=== PATIENT | female | born 1990 | race Caucasian/White ===

== ENCOUNTER 2016-10-03 11:36 | Emergency (ER) | payer OTHER ==
[~2016-10-03] VITALS: Wt 90.7 kg
[~2016-10-03 11:36] MED LIST: ALBUTEROL0.09 MG/A2 INH; AMOXICILLIN500 M2 PO; AMOXICILLIN500 MG PO; ANAPROX DS550 MG PO; ANUSOL HC-11% TP; ATARAX25 MG PO; ATIVAN1 MG PO; BACTRIM DS 8001 TA1 PO; BENTYL10 MG PO; BIRTH CONTROL1 EAC1 PO; CELEXA20 MG PO; CEPHALEXIN500 M1 PO; CIPRO500 MG PO; CLARITIN10 MG PO; CLINDAMYCIN HC300 MG PO; COLACE100 MG; COLACE100 MG PO; COMPAZINE SR10 MG PO; COMPAZINE10 MG PO; CYCLOBENZAPRINE10 MG PO; DEPAKOTE500 MG PO; FLEXERIL5 MG PO; FLONASE ALLERG9.9 ML NS; Feosol300 MG PO; HYDROCODONE BIT1 T11 PO; IBU-8800 MG PO; IBU800 MG PO; IRON325 M1 PO; KEFLEX500 MG PO; LABETALOL100 MG PO; LIDEX0.05% T; MACROBID100 M1 PO; MEDROL DOSEPAK4 MG PO; MOTRIN800 MG PO; NKHM; NORCO 5-325 TA1 EACH PO; PERCOCET 325 MG1 TA6 PO; PREDNICOT20 MG PO; PREDNISONE10 MG PO; PRENATAL1 TA2 PO; PRENATAL1 TA7 PO; PROAIR HFA0.09 MG/AC IH; PROVERA10 MG PO; ROBITUSSIN DM 105 ML PO; SOLU-MEDROL40 MG IJ; TOBREX 5 ML5 ML OPH; TRAMADOL HCL50 MG PO; TYLENOL325 M1 PO; ULTRAM50 MG PO; ZANTAC150 MG PO; ZITHROMAX Z PA250 MG PO; ZITHROMAX500 MG PO; ZOFRAN ODT4 MG SL; ZOFRAN4 MG PO; ZYRTEC10 MG PO
[2016-10-03] MEDS ORDERED: VIBRAMYCIN100 MG PO (12:57)
== END 2016-10-03 13:58 | disposition home or self-care (01) ==
LOC: ED 11:36
DX: J20.9 Acute bronchitis, unspecified (principal); F17.200 Nicotine dependence, unspecified, uncomplicated; Z98.890 Other specified postprocedural states

== ENCOUNTER 2016-10-11 19:28 | Emergency (ER) | payer OTHER ==
[~2016-10-11] VITALS: Ht 162.5 cm; Wt 90.7 kg
[~2016-10-11 19:28] MED LIST changes: +VIBRAMYCIN100 MG PO
[2016-10-11 19:46] LABS: BILIRUBIN NEGATIVE (NEGATIVE); BLOOD TRACE-INTACT (NEGATIVE); CLARITY CLEAR (CLEAR); COLOR YELLOW (YELLOW); GLUCOSE NEGATIVE (NEGATIVE); KETONE TRACE (NEGATIVE); LEUKO ESTERASE NEGATIVE (NEGATIVE); NITRITE NEGATIVE (NEGATIVE); PH 6.5 (5.0-9.0); PROTEIN NEGATIVE (NEGATIVE)
[2016-10-11 19:58] LABS: BACTERIA TRACE; EPITHELIAL CELLS 60-70; URINE REFLEX COMMENT NO (NO)
[2016-10-11 20:13] LABS: BASO % 0.3 % (0.0-1.0); EOS # 0.5 10*3/uL (0.0-0.4); HEMATOCRIT 36.3 % (37.0-47.0); LYMPH # 3.7 10*3/uL (1.3-4.4); MEAN CELL VOLUME 87.1 fl (81.0-99.0); MEAN CORPUSCULAR HGB 28.8 pg (27.0-31.0); MEAN CORPUSCULAR HGB CONC 33.1 g/dl (33.0-37.0); MEAN PLATELET VOLUME 8.9 fl (9.6-12.3); MONO # 0.7 10*3/uL (0.1-1.0); MONO % 8.1 % (3.0-9.0); NEUT # 4.1 10*3/uL (2.3-7.9); NEUT % 45.2 % (47.0-73.0); PLATELET COUNT AUTOMATED 335 10*3/uL (130-400); RED BLOOD COUNT 4.17 10*6/uL (4.10-5.10)
[2016-10-11 20:30] LABS: ALBUMIN 3.5 gm/dl (3.1-4.5); ALKALINE PHOSPHATASE 69 U/L (45-117); BILIRUBIN, TOTAL 0.2 mg/dl (0.2-1.0); BUN 12 mg/dl (7-24); CARBON DIOXIDE 23 mmol/L (21-32); CHLORIDE 109 mmol/L (98-107); EST GLOM FILT AFRICAN AMERICAN > 60 ml/min; GLUCOSE 95 mg/dL (65-99); POTASSIUM 3.8 mmol/L (3.5-5.1); SGOT/AST 12 IU/L (3-35); SGPT/ALT 24 U/L (12-78); SODIUM 142 mmol/L (136-145); TOTAL PROTEIN 7.2 gm/dL (6.4-8.2)
[2016-10-11 20:33] LABS: C-REACTIVE PROTEIN < 0.29 MG/DL (0-0.3); TROPONIN I < 0.015 ng/ml (<0.5)
[2016-10-11] MEDS ORDERED: ULTRAM50 MG PO (21:24)
[2016-10-11] MEDS ORDERED: ANAPROX DS550 MG PO (21:24)
== END 2016-10-11 21:56 | disposition home or self-care (01) ==
LOC: ED 19:28
PROVIDERS: Emergency Medicine Emergency Medical Services
DX: M94.0 Chondrocostal junction syndrome [Tietze] (principal); F17.200 Nicotine dependence, unspecified, uncomplicated

== ENCOUNTER → 2016-11-25 | Outpatient (CLI) | payer OTHER ==
[~2016-11-25] MED LIST changes: +AUGMENTIN 875875 MG PO; +CLARITIN-D 12 H1 TAB PO; +FLONASE ALLERG9.9 ML NAS; +LEXAPRO10 MG PO
== END | disposition home or self-care (01) ==
LOC: RESCLI
DX: F31.9 Bipolar disorder, unspecified (principal); J30.89 Other allergic rhinitis; J02.9 Acute pharyngitis, unspecified; E66.9 Obesity, unspecified; K21.9 Gastro-esophageal reflux disease without esophagitis; Z72.0 Tobacco use

== ENCOUNTER 2017-01-03 21:20 | Emergency (ER) | payer OTHER ==
[~2017-01-03] VITALS: Ht 162.5 cm; Wt 86.2 kg
[~2017-01-03 21:20] MED LIST changes: -AUGMENTIN 875875 MG PO; -CLARITIN-D 12 H1 TAB PO; -FLONASE ALLERG9.9 ML NAS; -LEXAPRO10 MG PO
[2017-01-03] MEDS ORDERED: LEXAPRO10 MG PO (21:33)
[2017-01-03] MEDS ORDERED: CLARITIN10 MG PO (21:33)
[2017-01-03] MEDS ORDERED: AUGMENTIN 875875 MG PO (22:01)
[2017-01-03] MEDS ORDERED: FLONASE ALLERG9.9 ML NAS (22:01)
[2017-01-03] MEDS ORDERED: CLARITIN-D 12 H1 TAB PO (22:01)
== END 2017-01-03 22:07 | disposition home or self-care (01) ==
LOC: ED 21:20
DX: J01.11 Acute recurrent frontal sinusitis (principal); F17.200 Nicotine dependence, unspecified, uncomplicated

== ENCOUNTER → 2017-01-12 | Outpatient (CLI) | payer OTHER ==
[~2017-01-12] MED LIST changes: +AUGMENTIN 875875 MG PO; +CLARITIN-D 12 H1 TAB PO; +FLONASE ALLERG9.9 ML NAS; +LEXAPRO10 MG PO
== END | disposition home or self-care (01) ==
LOC: RESCLI 00:41
DX: J32.9 Chronic sinusitis, unspecified (principal); K21.9 Gastro-esophageal reflux disease without esophagitis; J45.909 Unspecified asthma, uncomplicated

== ENCOUNTER → 2017-01-20 | Outpatient (CLI) | payer OTHER | END | disposition home or self-care (01) | LOC: RESCLI 03:46 | DX: F31.9 Bipolar disorder, unspecified (principal); J01.81 Other acute recurrent sinusitis; F20.89 Other schizophrenia; E66.9 Obesity, unspecified; Z72.0 Tobacco use; J45.909 Unspecified asthma, uncomplicated ==

== ENCOUNTER 2017-02-18 21:45 | Emergency (ER) | payer OTHER ==
[~2017-02-18] VITALS: Ht 162.5 cm; Wt 90.7 kg
[2017-02-18 22:33] LABS: BILIRUBIN NEGATIVE (NEGATIVE); BLOOD 1+ (NEGATIVE); CLARITY SL CLOUDY (CLEAR); COLOR YELLOW (YELLOW); GLUCOSE NEGATIVE (NEGATIVE); KETONE NEGATIVE (NEGATIVE); LEUKO ESTERASE 3+ (NEGATIVE); NITRITE NEGATIVE (NEGATIVE); PH 5.5 (5.0-9.0); PROTEIN NEGATIVE (NEGATIVE); UROBILINOGEN 0.2 E.U./dl (0.2-1.0)
[2017-02-18 22:39] LABS: BACTERIA 1+; EPITHELIAL CELLS 21-30; URINE REFLEX COMMENT YES (NO)
[2017-02-18 22:53] LABS: BASO # 0.1 10*3/uL (0.0-0.1); BASO % 0.6 % (0.0-1.0); EOS # 0.7 10*3/uL (0.0-0.4); EOS % 6.4 % (1.0-4.0); HEMATOCRIT 38.2 % (37.0-47.0); HEMOGLOBIN 12.5 g/dl (12.0-16.0); LYMPH # 3.7 10*3/uL (1.3-4.4); LYMPH % 36.5 % (27.0-41.0); MEAN CELL VOLUME 88.4 fl (81.0-99.0); MEAN CORPUSCULAR HGB 28.9 pg (27.0-31.0); MEAN CORPUSCULAR HGB CONC 32.7 g/dl (33.0-37.0); MEAN PLATELET VOLUME 8.6 fl (9.6-12.3); MONO # 0.8 10*3/uL (0.1-1.0); MONO % 7.6 % (3.0-9.0); NEUT # 4.9 10*3/uL (2.3-7.9); NEUT % 48.5 % (47.0-73.0); PLATELET COUNT AUTOMATED 292 10*3/uL (130-400); RED BLOOD COUNT 4.32 10*6/uL (4.10-5.10); RED CELL DISTRI WIDTH 13.2 % (0-14.5); WHITE BLOOD COUNT 10.1 10*3/uL (4.8-10.8)
[2017-02-18 23:11] LABS: ALBUMIN 3.5 gm/dl (3.1-4.5); ALKALINE PHOSPHATASE 79 U/L (45-117); BILIRUBIN, TOTAL 0.2 mg/dl (0.2-1.0); BUN 9 mg/dl (7-24); CARBON DIOXIDE 29 mmol/L (21-32); CHLORIDE 105 mmol/L (98-107); EST GLOM FILT AFRICAN AMERICAN > 60 ml/min; GLUCOSE 88 mg/dL (65-99); POTASSIUM 3.5 mmol/L (3.5-5.1); SGOT/AST 14 IU/L (3-35); SGPT/ALT 24 U/L (12-78); SODIUM 143 mmol/L (136-145); TOTAL PROTEIN 6.9 gm/dL (6.4-8.2)
[2017-02-18] MEDS ORDERED: CIPRO500 MG PO (23:24)
== END 2017-02-18 23:56 | disposition home or self-care (01) ==
LOC: ED 21:45
PROVIDERS: Emergency Medicine
DX: N39.0 Urinary tract infection, site not specified (principal); R31.9 Hematuria, unspecified; F17.200 Nicotine dependence, unspecified, uncomplicated; Z79.899 Other long term (current) drug therapy

== ENCOUNTER 2017-02-28 17:01 | Emergency (ER) | payer OTHER ==
[~2017-02-28] VITALS: Wt 90.7 kg
[2017-02-28] MEDS ORDERED: SERTRALINE HYDR50 MG PO (17:03)
[2017-02-28] MEDS ORDERED: GOOD NEIGHBOR L10 MG PO (17:03)
[2017-02-28] MEDS ORDERED: ESCITALOPRAM OX10 MG PO (17:03)
[2017-02-28 17:25] LABS: BILIRUBIN NEGATIVE (NEGATIVE); BLOOD NEGATIVE (NEGATIVE); CLARITY SL CLOUDY (CLEAR); COLOR YELLOW (YELLOW); GLUCOSE NEGATIVE (NEGATIVE); KETONE NEGATIVE (NEGATIVE); LEUKO ESTERASE NEGATIVE (NEGATIVE); NITRITE NEGATIVE (NEGATIVE); PROTEIN NEGATIVE (NEGATIVE); SPECIFIC GRAVITY >= 1.030 (1.005-1.030)
[2017-02-28 17:31] LABS: BASO # 0.1 10*3/uL (0.0-0.1); BASO % 0.5 % (0.0-1.0); EOS # 0.7 10*3/uL (0.0-0.4); EOS % 5.4 % (1.0-4.0); HEMATOCRIT 37.7 % (37.0-47.0); HEMOGLOBIN 12.3 g/dl (12.0-16.0); LYMPH # 3.8 10*3/uL (1.3-4.4); LYMPH % 30.8 % (27.0-41.0); MEAN CELL VOLUME 87.5 fl (81.0-99.0); MEAN CORPUSCULAR HGB 28.5 pg (27.0-31.0); MEAN CORPUSCULAR HGB CONC 32.6 g/dl (33.0-37.0); MEAN PLATELET VOLUME 8.8 fl (9.6-12.3); MONO # 1.2 10*3/uL (0.1-1.0); MONO % 9.9 % (3.0-9.0); NEUT # 6.5 10*3/uL (2.3-7.9); NEUT % 53.1 % (47.0-73.0); PLATELET COUNT AUTOMATED 342 10*3/uL (130-400); RED BLOOD COUNT 4.31 10*6/uL (4.10-5.10); RED CELL DISTRI WIDTH 13.3 % (0-14.5); WHITE BLOOD COUNT 12.3 10*3/uL (4.8-10.8)
[2017-02-28 17:35] LABS: BACTERIA TRACE; MUCOUS 1+
[2017-02-28 17:36] LABS: URINE REFLEX COMMENT NO (NO)
[2017-02-28 17:48] LABS: ALBUMIN 3.6 gm/dl (3.1-4.5); ALKALINE PHOSPHATASE 82 U/L (45-117); BILIRUBIN, TOTAL 0.3 mg/dl (0.2-1.0); BUN 8 mg/dl (7-24); CARBON DIOXIDE 25 mmol/L (21-32); CHLORIDE 106 mmol/L (98-107); EST GLOM FILT AFRICAN AMERICAN > 60 ml/min; GLUCOSE 89 mg/dL (65-99); SGOT/AST 18 IU/L (3-35); SGPT/ALT 23 U/L (12-78); SODIUM 142 mmol/L (136-145); TOTAL PROTEIN 7.3 gm/dL (6.4-8.2)
== END 2017-02-28 18:12 | disposition home or self-care (01) ==
LOC: ED 17:01
PROVIDERS: Physician Assistant
DX: R60.0 Localized edema (principal); R03.0 Elevated blood-pressure reading, without diagnosis of hypertension; F17.200 Nicotine dependence, unspecified, uncomplicated; Z79.899 Other long term (current) drug therapy

== ENCOUNTER 2017-03-04 21:32 | Emergency (ER) | payer OTHER ==
[~2017-03-04] VITALS: Ht 162.5 cm; Wt 9.1 kg
[~2017-03-04 21:32] MED LIST changes: +ESCITALOPRAM OX10 MG PO; +GOOD NEIGHBOR L10 MG PO; +SERTRALINE HYDR50 MG PO
[2017-03-04] MEDS ORDERED: TRINTELLIX20 MG PO (21:49)
[2017-03-04] MEDS ORDERED: XANAX0.5 MG PO (21:49)
[2017-03-04 23:05] LABS: BASO # 0.1 10*3/uL (0.0-0.1); BASO % 0.5 % (0.0-1.0); EOS # 0.7 10*3/uL (0.0-0.4); EOS % 6.7 % (1.0-4.0); HEMATOCRIT 36.7 % (37.0-47.0); HEMOGLOBIN 12.1 g/dl (12.0-16.0); LYMPH # 3.8 10*3/uL (1.3-4.4); LYMPH % 36.3 % (27.0-41.0); MEAN CELL VOLUME 87.8 fl (81.0-99.0); MEAN CORPUSCULAR HGB 28.9 pg (27.0-31.0); MEAN PLATELET VOLUME 8.7 fl (9.6-12.3); MONO # 0.9 10*3/uL (0.1-1.0); MONO % 8.7 % (3.0-9.0); NEUT % 47.5 % (47.0-73.0); PLATELET COUNT AUTOMATED 281 10*3/uL (130-400); RED BLOOD COUNT 4.18 10*6/uL (4.10-5.10); RED CELL DISTRI WIDTH 13.4 % (0-14.5); WHITE BLOOD COUNT 10.4 10*3/uL (4.8-10.8)
[2017-03-04 23:07] LABS: BILIRUBIN NEGATIVE (NEGATIVE); BLOOD NEGATIVE (NEGATIVE); CLARITY SL CLOUDY (CLEAR); COLOR YELLOW (YELLOW); GLUCOSE NEGATIVE (NEGATIVE); KETONE NEGATIVE (NEGATIVE); LEUKO ESTERASE NEGATIVE (NEGATIVE); NITRITE NEGATIVE (NEGATIVE); PROTEIN NEGATIVE (NEGATIVE); SPECIFIC GRAVITY 1.025 (1.005-1.030)
[2017-03-04 23:20] LABS: ALBUMIN 3.5 gm/dl (3.1-4.5); ALKALINE PHOSPHATASE 75 U/L (45-117); BILIRUBIN, TOTAL 0.2 mg/dl (0.2-1.0); BUN 8 mg/dl (7-24); CARBON DIOXIDE 25 mmol/L (21-32); CHLORIDE 105 mmol/L (98-107); EST GLOM FILT AFRICAN AMERICAN > 60 ml/min; GLUCOSE 95 mg/dL (65-99); POTASSIUM 3.7 mmol/L (3.5-5.1); SGOT/AST 18 IU/L (3-35); SGPT/ALT 29 U/L (12-78); SODIUM 143 mmol/L (136-145)
[2017-03-04 23:21] LABS: BACTERIA TRACE
[2017-03-04 23:22] LABS: EPITHELIAL CELLS 16-20; URINE REFLEX COMMENT YES (NO)
[2017-03-04 23:22] LABS: B-hCG (QUALITATIVE) NEGATIVE (NEGATIVE)
[2017-03-05] MEDS ORDERED: PYRIDIUM200 M1 PO (00:19)
== END 2017-03-05 00:35 | disposition home or self-care (01) ==
LOC: ED 21:32
PROVIDERS: Physician Assistant
DX: M79.89 Other specified soft tissue disorders (principal); R07.9 Chest pain, unspecified; F17.200 Nicotine dependence, unspecified, uncomplicated; Z79.899 Other long term (current) drug therapy

== ENCOUNTER → 2017-04-13 | Outpatient (CLI) | payer OTHER ==
[~2017-04-13] MED LIST changes: +PYRIDIUM200 M1 PO; +TRINTELLIX20 MG PO; +XANAX0.5 MG PO
== END | disposition home or self-care (01) ==
LOC: RESCLI 12:55
DX: Z32.00 Encounter for pregnancy test, result unknown (principal); R19.00 Intra-abdominal and pelvic swelling, mass and lump, unspecified site; M79.89 Other specified soft tissue disorders; R53.82 Chronic fatigue, unspecified

== ENCOUNTER → 2017-04-14 | Outpatient (CLI) | payer OTHER ==
[2017-04-14 12:17] LABS: FREE T4 0.93 ng/dl (0.76-1.46)
[2017-04-14 13:29] LABS: VITAMIN D, 25-HYDROXY 21.3 ng/mL (30-100)
[2017-04-14 13:30] LABS: FOLIC ACID 15.44 ng/mL (>5.38)
== END | disposition home or self-care (01) ==
LOC: LAB 11:00
PROVIDERS: Nurse Practitioner Adult Health
DX: Z32.00 Encounter for pregnancy test, result unknown (principal); R53.82 Chronic fatigue, unspecified; R79.89 Other specified abnormal findings of blood chemistry; E55.9 Vitamin D deficiency, unspecified

== ENCOUNTER → 2017-04-24 | Outpatient (CLI) | payer OTHER | END | disposition home or self-care (01) | LOC: US 03:25 | DX: Z53.9 Procedure and treatment not carried out, unspecified reason (principal) ==

== ENCOUNTER 2017-05-14 13:18 | Emergency (ER) | payer OTHER ==
[~2017-05-14] VITALS: Ht 162.5 cm; Wt 90.7 kg
[2017-05-14] MEDS ORDERED: ROBITUSSIN AC 110 ML PO (14:08)
[2017-05-14] MEDS ORDERED: CLARITIN10 MG PO (14:08)
[2017-05-14] MEDS ORDERED: FLONASE ALLERG9.9 ML NAS (14:08)
== END 2017-05-14 14:45 | disposition home or self-care (01) ==
LOC: ED 13:18
DX: B34.9 Viral infection, unspecified (principal); Z98.890 Other specified postprocedural states; Z79.899 Other long term (current) drug therapy

== ENCOUNTER 2017-05-18 06:02 | Emergency (ER) | payer OTHER ==
[~2017-05-18] VITALS: Ht 162.5 cm; Wt 90.7 kg
[~2017-05-18 06:02] MED LIST changes: +ROBITUSSIN AC 110 ML PO
[2017-05-18 06:26] LABS: BASO % 0.3 % (0.0-1.0); EOS # 0.4 10*3/uL (0.0-0.4); EOS % 3.1 % (1.0-4.0); HEMATOCRIT 37.5 % (37.0-47.0); HEMOGLOBIN 12.3 g/dl (12.0-16.0); LYMPH # 2.4 10*3/uL (1.3-4.4); LYMPH % 18.1 % (27.0-41.0); MEAN CELL VOLUME 86.4 fl (81.0-99.0); MEAN CORPUSCULAR HGB 28.3 pg (27.0-31.0); MEAN CORPUSCULAR HGB CONC 32.8 g/dl (33.0-37.0); MEAN PLATELET VOLUME 8.3 fl (9.6-12.3); MONO # 1.1 10*3/uL (0.1-1.0); NEUT # 9.2 10*3/uL (2.3-7.9); PLATELET COUNT AUTOMATED 336 10*3/uL (130-400); RED BLOOD COUNT 4.34 10*6/uL (4.10-5.10); RED CELL DISTRI WIDTH 12.7 % (0-14.5); WHITE BLOOD COUNT 13.1 10*3/uL (4.8-10.8)
[2017-05-18 06:43] LABS: ALBUMIN 3.4 gm/dl (3.1-4.5); ALKALINE PHOSPHATASE 93 U/L (45-117); BUN 8 mg/dl (7-24); CHLORIDE 106 mmol/L (98-107); CREATININE 0.63 mg/dL (0.55-1.02); POTASSIUM 3.7 mmol/L (3.5-5.1); SGOT/AST 20 IU/L (3-35); SGPT/ALT 29 U/L (12-78); SODIUM 138 mmol/L (136-145); TOTAL PROTEIN 7.6 gm/dL (6.4-8.2)
[2017-05-18] MEDS ORDERED: AUGMENTIN 875875 MG PO (06:51)
== END 2017-05-18 07:01 | disposition home or self-care (01) ==
LOC: ED 06:02
PROVIDERS: Student in an Organized Health Care Education/Training Program
DX: J45.909 Unspecified asthma, uncomplicated (principal); J01.00 Acute maxillary sinusitis, unspecified; F17.200 Nicotine dependence, unspecified, uncomplicated; Z79.899 Other long term (current) drug therapy

== ENCOUNTER 2017-05-20 12:42 | Inpatient (IN) | payer OTHER ==
[~2017-05-20] VITALS: Ht 157.4 cm; Wt 94.0 kg
--- NOTE | ~2017-05-20 | CON ---
[place], [place] REPORT OF CONSULTATION NAME: HUNTER MANZO UNIT #: [id number] ROOM: 518 DOCTOR: RASHEED DESAI DO BIRTHDATE: [birth year] DOS: 05/22/2017 RESON FOR CONSULTATION: Pneumonia on CT at [facility] by hospitalist service. HISTORY OF PRESENT ILLNESS: This is a 26-year-old female who presents to [facility] with chief complaint of pneumonia. The patient said that she went to ED twice, first visit she was discharged saying that the symptoms were viral and was not given medication. Second time she returned to the ED and she was diagnosed with asthma and sinusitis and discharged on Augmentin. That night, she felt increasing shortness of breath, productive cough with green sputum and went to [facility] for further care. At [facility], the patient had CT done, which showed multifocal pneumonia and was discharged home on doxycycline. The patient was then to follow up with the residency clinic. In residency clinic, she continued to complain of productive cough and shortness of breath, nausea and increasing fatigue. The patient was sent to the ED for further treatment and then admitted to the hospital. The patient continues to smoke half pack per day for 15 years. Sometimes she says that she also smokes 3/4 pack per day. Currently, she has some shortness of breath. Denies any abdominal pain, nausea, vomiting, diarrhea, constipation, dysuria or frequency, or chest pain at this time. PAST MEDICAL HISTORY: 1. Anxiety. 2. Asthma. 3. Depression. 4. Obesity. 5. Sciatica. PAST SURGICAL HISTORY: 1. History of section x 3. 2. History of placement of ear tubes. SOCIAL HISTORY: Does not drink alcohol, does not use any illicit drugs. Smokes half pack per day for 15 years. FAMILY HISTORY: Father is around age 40, has cancer, unknown. Mother is around age 40, has diabetes and hypertension. ALLERGIES: No known allergies. HOME MEDICATIONS: Noted to be Xanax 0.5 mg p.o. twice a day, Zofran 8 mg p.o. q. 8 and Trintellix 20 mg p.o. daily. REVIEW OF SYSTEMS: The patient denies fevers. The patient reports chills. Denies weight loss, weight gain. HEENT: Denies vision changes, hearing loss, nasal discharge, eye pain and mouth pain. CARDIOVASCULAR: Denies chest pain. No lower extremity edema noted. RESPIRATORY: Reports shortness of breath. Reports cough, reports wheezing, [place], [place] REPORT OF CONSULTATION NAME: HUNTER MANZO UNIT #: [id number] ROOM: 518 DOCTOR: RASHEED DESAI DO BIRTHDATE: [birth year] reports sputum production. Denies hemoptysis. Denies dyspnea on exertion. Denies paroxysmal nocturnal dyspnea. GASTROINTESTINAL: ____. RASHEED DESAI DO DIMA DICKERSON MD CM:CONSTR:REPORT OF CONSULTATION 1241 05/25/17 0857 interface
--- NOTE | ~2017-05-20 | CON ---
[place], [place] REPORT OF CONSULTATION NAME: HUNTER MANZO UNIT #: [id number] ROOM: 518 DOCTOR: DIMA ALANIS MD BIRTHDATE: [birth year] DOS: 05/22/2017 SUBJECTIVE: History was confirmed for this patient with [id number] encounter and physical examination performed. All the data was reviewed. The management decision made accurately reflects my personal assessment and recommendation for today's consultation. HISTORY OF PRESENT ILLNESS: This is a 26-year-old white female with known history of bronchial asthma and with allergic rhinitis. The patient has been seen in the Emergency Room of [facility] initially on 05/14/2017 and then later on 05/18/2017 as well. The patient had initial diagnosis of viral bronchitis and other symptoms. She was given some [id number] medications and sent home. The patient presented back to the Emergency Room and reported increase in the respiratory symptoms. The patient stated that the diagnosis of acute bronchitis as well as sinusitis was made and she was sent home on oral Augmentin and other medications. She did not respond to the treatment, noted worsening in the respiratory symptoms, increased chest congestion and severe cough. She was also noted with symptoms of shortness of breath and wheezing. She went to the Emergency Room of [facility] and reported with acute bacterial pneumonia involving the lungs, multifocal bilaterally. The patient came to the Emergency Room of [facility] and admitted to the hospital on 05/20/2017 for the medical management of current pneumonia and bronchial asthma exacerbation. The patient stated that his stay in the hospital lasted 48 hours. She has responded to treatment and noted with significant reduction and improvement in the cough. The shortness of breath of the patient has improved markedly. Denies symptoms of wheezing, chest pain. She denies symptoms of fever or chills or hemoptysis. Denies any symptoms of postnasal drainage. She denies symptoms of gastroesophageal reflux, nausea, vomiting, diarrhea, abdominal pain, hematemesis or melena. Denies any skin lesions or rashes. PAST MEDICAL HISTORY: Noted to be remarkable for history of longstanding bronchial asthma, severity unknown. The patient does take only the nebulizer bronchodilators and the metered dose inhaler and short acting bronchodilators. Chronic tobacco use was noted as half a pack of cigarettes per day. The patient is noted single and has 2 children, lives at home. PHYSICAL EXAMINATION: GENERAL: For this patient was noted as 26-year-old female without any acute distress, sitting comfortably on the bed. Height of 5 feet 3 inches, weight of 207 pounds, BMI of 37.9. VITAL SIGNS: Normal temperature, respirations 18-20, heart rate 68-71, blood pressure 121/76-137/65. Pulse oxygen saturation noted on room air 96% saturation. HEENT: Examination shows head was atraumatic. Eyes nonicterus. NECK: Supple. CARDIOVASCULAR: S1, S2 audible. LUNGS: Moderate decreased breath sounds with questionable wheezing, no crackles. ABDOMEN: Soft. Mild obesity. Bowel sound present. [place], [place] REPORT OF CONSULTATION NAME: HUNTER MANZO UNIT #: [id number] ROOM: 8 DO[facility] [birth year] EXTREMITIES: Show no edema, clubbing, cyanosis. CENTRAL NERVOUS SYSTEM: No gross focal deficit. MUSCULOSKELETAL SYSTEM: No deformities. SKIN: No lesions or rashes. LABORATORY DATA: CBC that were done in Emergency Room on 05/20/2017. WBC count 12.1, hemoglobin and hematocrit were normal, remaining CBC for the patient was noted as normal. Lactic acid on 05/20/2017 was 1.1. CMP of the patient on 05/20/2017 were noted as completely normal. The troponin was noted as negative. CBC yesterday; WBC count 18.7, hemoglobin 11.6, hematocrit 36.2, platelet count was normal, neutrophils 87%. BMP for the patient on 05/21/2017 was noted as glucose 143. Remaining labs were normal. CBC of this morning, WBC count 20.3, hemoglobin 11.3, hematocrit 35.5, platelet count of 410,000 with 87% segmented neutrophils. Review of the radiology data personally reviewed. Chest x-ray of the patient on 05/20/2017 was noted essentially normal, mild hyperinflation. Chest x-ray of 05/14/2017 was normal as well with patchy infiltration. Chest x-ray noted on 05/20/2017 normal as well. IMPRESSION: 1. The patient who has been currently admitted to the hospital with acute exacerbation of bronchial asthma with acute bronchitis, possibility of pneumonia whether viral or bacterial, unable to determine. CT scan images were not available to make any further comments about that. 2. Leukocytosis related to use of the corticosteroids. RECOMMENDATIONS: The patient could be considered for discharge on Zithromax 500 mg p.o. daily for the next 5 days to treat the pneumonia and her bronchitis including coverage for atypical infections. Corticosteroid tapering dose will be continued. Short acting bronchodilators will be continued. The patient could be followed up as an outpatient in the office for further recommendation. DIMA DICKERSON MD CM:CONSTR:REPORT OF CONSULTATION 1040 05/23/17 0537 interface
[2017-05-20 12:49] VITALS: BP 107/70
[2017-05-20 13:08] LABS: BASO # 0.1 10*3/uL (0.0-0.1); BASO % 0.4 % (0.0-1.0); EOS # 0.3 10*3/uL (0.0-0.4); EOS % 2.5 % (1.0-4.0); HEMATOCRIT 40.5 % (37.0-47.0); LYMPH # 3.8 10*3/uL (1.3-4.4); MEAN CELL VOLUME 88.2 fl (81.0-99.0); MEAN CORPUSCULAR HGB 28.3 pg (27.0-31.0); MEAN CORPUSCULAR HGB CONC 32.1 g/dl (33.0-37.0); MEAN PLATELET VOLUME 8.5 fl (9.6-12.3); MONO # 0.9 10*3/uL (0.1-1.0); MONO % 7.5 % (3.0-9.0); NEUT % 57.9 % (47.0-73.0); PLATELET COUNT AUTOMATED 357 10*3/uL (130-400); RED BLOOD COUNT 4.59 10*6/uL (4.10-5.10); RED CELL DISTRI WIDTH 13.1 % (0-14.5); WHITE BLOOD COUNT 12.1 10*3/uL (4.8-10.8)
[2017-05-20 13:24] LABS: ALBUMIN 3.4 gm/dl (3.1-4.5); ALKALINE PHOSPHATASE 100 U/L (45-117); BUN 13 mg/dl (7-24); CHLORIDE 105 mmol/L (98-107); CREATININE 0.76 mg/dL (0.55-1.02); POTASSIUM 3.7 mmol/L (3.5-5.1); SGOT/AST 14 IU/L (3-35); SGPT/ALT 29 U/L (12-78); SODIUM 140 mmol/L (136-145); TOTAL PROTEIN 7.8 gm/dL (6.4-8.2)
[2017-05-20 14:08] VITALS: BP 114/78
[2017-05-20 14:49] VITALS: BP 120/75
[2017-05-20] MEDS ORDERED: LORATADINE-D 11 EACH PO (15:16)
[2017-05-20] MEDS ORDERED: VIBRAMYCIN100 MG PO (15:17)
[2017-05-20] MEDS ORDERED: ZOFRAN8 M1 PO (15:18)
[2017-05-20] MEDS ORDERED: TESSALON PERLE100 M1 PO (15:18)
[2017-05-20] MEDS ORDERED: PREDNISONE20 M1 PO (15:19)
[2017-05-20 15:28] LABS: BILIRUBIN NEGATIVE (NEGATIVE); BLOOD NEGATIVE (NEGATIVE); CLARITY CLOUDY (CLEAR); COLOR YELLOW (YELLOW); GLUCOSE NEGATIVE (NEGATIVE); KETONE NEGATIVE (NEGATIVE); LEUKO ESTERASE 1+ (NEGATIVE); NITRITE NEGATIVE (NEGATIVE); SPECIFIC GRAVITY >= 1.030 (1.005-1.030); UROBILINOGEN 0.2 E.U./dl (0.2-1.0)
[2017-05-20 15:38] LABS: BACTERIA 1+; EPITHELIAL CELLS TNTC; MUCOUS 1+; RBC 0-2 rbc/hpf (0-2)
[2017-05-20 16:00] VITALS: BP 107/61
[2017-05-20 20:30] VITALS: BP 125/57
[2017-05-21] VITALS: BP 125/72
[2017-05-21 06:41] LABS: BASO % 0.1 % (0.0-1.0); HEMATOCRIT 36.2 % (37.0-47.0); HEMOGLOBIN 11.8 g/dl (12.0-16.0); LYMPH # 1.5 10*3/uL (1.3-4.4); LYMPH % 7.8 % (27.0-41.0); MEAN CORPUSCULAR HGB 28.4 pg (27.0-31.0); MEAN CORPUSCULAR HGB CONC 32.6 g/dl (33.0-37.0); MEAN PLATELET VOLUME 8.7 fl (9.6-12.3); MONO # 0.6 10*3/uL (0.1-1.0); MONO % 3.3 % (3.0-9.0); NEUT # 16.4 10*3/uL (2.3-7.9); NEUT % 87.5 % (47.0-73.0); PLATELET COUNT AUTOMATED 399 10*3/uL (130-400); RED BLOOD COUNT 4.16 10*6/uL (4.10-5.10); RED CELL DISTRI WIDTH 12.7 % (0-14.5); WHITE BLOOD COUNT 18.7 10*3/uL (4.8-10.8)
[2017-05-21 07:14] LABS: BUN 7 mg/dl (7-24); CHLORIDE 108 mmol/L (98-107); CHOLESTEROL 142 mg/dL (<200); CREATININE 0.67 mg/dL (0.55-1.02); HDL CHOLESTEROL 38 mg/dl (40-60); LDL CHOLESTEROL 94 mg/dL (9-159); MAGNESIUM 2.3 mg/dL (1.5-2.1); PHOSPHOROUS 2.8 mg/dL (2.5-4.9); POTASSIUM 4.5 mmol/L (3.5-5.1); SODIUM 139 mmol/L (136-145); TRIGLYCERIDES 48 mg/dl (<150); VLDL CHOLESTEROL 10 mg/dL (6-40)
[2017-05-21 07:23] LABS: ACT PARTIAL THROMBO TIME 25.5 SECONDS (20.8-31.5)
[2017-05-21 08:00] VITALS: BP 112/63
[2017-05-21 12:00] VITALS: BP 137/65
[2017-05-21 16:00] VITALS: BP 128/61
[2017-05-21 20:00] VITALS: BP 123/64
[2017-05-22] VITALS: BP 145/62
[2017-05-22 07:12] LABS: HEMATOCRIT 35.2 % (37.0-47.0); HEMOGLOBIN 11.3 g/dl (12.0-16.0); MEAN CELL VOLUME 89.3 fl (81.0-99.0); MEAN CORPUSCULAR HGB 28.7 pg (27.0-31.0); MEAN CORPUSCULAR HGB CONC 32.1 g/dl (33.0-37.0); MEAN PLATELET VOLUME 8.7 fl (9.6-12.3); PLATELET COUNT AUTOMATED 410 10*3/uL (130-400); RED BLOOD COUNT 3.94 10*6/uL (4.10-5.10); RED CELL DISTRI WIDTH 13.1 % (0-14.5); WHITE BLOOD COUNT 20.3 10*3/uL (4.8-10.8)
[2017-05-22 07:39] LABS: TOTAL CELLS COUNTED 100 #CELLS
[2017-05-22 07:40] LABS: PLATELET SUFFICIENCY HIGH (NORMAL); TOXIC GRANULATION SLIGHT
[2017-05-22 08:00] VITALS: BP 125/76
[2017-05-22] MEDS ORDERED: PREDNISONE10 MG PO (10:06)
[2017-05-22] MEDS ORDERED: ZITHROMAX500 MG PO (10:06)
[2017-05-22 11:54] VITALS: BP 135/65
[2017-05-22 16:11] LABS: LEGIONELLA URINARY ANTIGEN Negative (Negative)
== END 2017-05-22 12:25 | disposition home or self-care (01) | DRG 871 ==
LOC: ED 12:42 → EDHOLD 13:49 → 5E 13:49
PROVIDERS: Emergency Medicine; Family Medicine; ADMIT Internal Medicine
DX: A41.9 Sepsis, unspecified organism (principal); J18.9 Pneumonia, unspecified organism; E44.0 Moderate protein-calorie malnutrition; J45.901 Unspecified asthma with (acute) exacerbation; E83.41 Hypermagnesemia; F32.9 Major depressive disorder, single episode, unspecified; M54.30 Sciatica, unspecified side; R73.9 Hyperglycemia, unspecified; J32.9 Chronic sinusitis, unspecified; E66.9 Obesity, unspecified; F41.9 Anxiety disorder, unspecified; F17.210 Nicotine dependence, cigarettes, uncomplicated; J30.2 Other seasonal allergic rhinitis; R73.03 Prediabetes; Z71.6 Tobacco abuse counseling; Z79.899 Other long term (current) drug therapy; Z98.891 History of uterine scar from previous surgery; Z82.49 Family history of ischemic heart disease and other diseases of the circulatory system; Z83.3 Family history of diabetes mellitus; Z80.9 Family history of malignant neoplasm, unspecified; Z68.35 Body mass index [BMI] 35.0-35.9, adult; T38.0X5A Adverse effect of glucocorticoids and synthetic analogues, initial encounter; Y92.89 Other specified places as the place of occurrence of the external cause

== ENCOUNTER 2017-07-23 17:57 | Emergency (ER) | payer OTHER ==
[~2017-07-23] VITALS: Wt 90.7 kg
[~2017-07-23 17:57] MED LIST changes: +LORATADINE-D 11 EACH PO; +PREDNISONE20 M1 PO; +TESSALON PERLE100 M1 PO; +ZOFRAN8 M1 PO
[2017-07-23 18:41] LABS: BASO % 0.4 % (0.0-1.0); EOS # 0.6 10*3/uL (0.0-0.4); EOS % 5.7 % (1.0-4.0); HEMATOCRIT 38.5 % (37.0-47.0); HEMOGLOBIN 12.5 g/dl (12.0-16.0); LYMPH # 3.7 10*3/uL (1.3-4.4); LYMPH % 33.1 % (27.0-41.0); MEAN CELL VOLUME 87.5 fl (81.0-99.0); MEAN CORPUSCULAR HGB 28.4 pg (27.0-31.0); MEAN CORPUSCULAR HGB CONC 32.5 g/dl (33.0-37.0); MEAN PLATELET VOLUME 8.5 fl (9.6-12.3); MONO # 1.2 10*3/uL (0.1-1.0); MONO % 10.4 % (3.0-9.0); NEUT # 5.6 10*3/uL (2.3-7.9); NEUT % 50.2 % (47.0-73.0); PLATELET COUNT AUTOMATED 334 10*3/uL (130-400); RED CELL DISTRI WIDTH 13.7 % (0-14.5); WHITE BLOOD COUNT 11.1 10*3/uL (4.8-10.8)
[2017-07-23 18:57] LABS: ALBUMIN 3.8 gm/dl (3.1-4.5); ALKALINE PHOSPHATASE 84 U/L (45-117); BUN 12 mg/dl (7-24); CHLORIDE 107 mmol/L (98-107); CREATININE 0.73 mg/dL (0.55-1.02); LIPASE 155 U/L (73-393); POTASSIUM 3.6 mmol/L (3.5-5.1); SGOT/AST 13 IU/L (3-35); SGPT/ALT 28 U/L (12-78); SODIUM 142 mmol/L (136-145); TOTAL PROTEIN 7.4 gm/dL (6.4-8.2)
[2017-07-23 19:21] LABS: BILIRUBIN NEGATIVE (NEGATIVE); BLOOD TRACE-INTACT (NEGATIVE); CLARITY CLOUDY (CLEAR); COLOR YELLOW (YELLOW); GLUCOSE NEGATIVE (NEGATIVE); KETONE NEGATIVE (NEGATIVE); LEUKO ESTERASE NEGATIVE (NEGATIVE); NITRITE NEGATIVE (NEGATIVE); PH 6.5 (5.0-9.0)
[2017-07-23 19:29] LABS: BACTERIA 1+; EPITHELIAL CELLS 40-45; RBC 0-2 rbc/hpf (0-2); WBC 0-2 wbc/hpf (0-5)
[2017-07-23] MEDS ORDERED: Zofran4 MG PO (19:47)
== END 2017-07-23 19:57 | disposition home or self-care (01) ==
LOC: ED 17:57
PROVIDERS: Physician Assistant
DX: R11.0 Nausea (principal); R10.10 Upper abdominal pain, unspecified; F17.200 Nicotine dependence, unspecified, uncomplicated; Z98.890 Other specified postprocedural states; Z79.899 Other long term (current) drug therapy

== ENCOUNTER 2017-08-08 19:36 | Emergency (ER) | payer OTHER ==
[~2017-08-08] VITALS: Ht 167.6 cm; Wt 90.7 kg
[~2017-08-08 19:36] MED LIST changes: +Zofran4 MG PO
[2017-08-08] MEDS ORDERED: Motrin,Rufen800 MG PO (21:21)
== END 2017-08-08 21:25 | disposition home or self-care (01) ==
LOC: ED 19:36
DX: S69.91XA Unspecified injury of right wrist, hand and finger(s), initial encounter (principal); R60.0 Localized edema; F17.200 Nicotine dependence, unspecified, uncomplicated; Z98.890 Other specified postprocedural states; Z79.899 Other long term (current) drug therapy; X50.1XXA Overexertion from prolonged static or awkward postures, initial encounter; Y93.89 Activity, other specified; Y92.89 Other specified places as the place of occurrence of the external cause; Y99.9 Unspecified external cause status

== ENCOUNTER 2017-08-22 15:24 | Emergency (ER) | payer OTHER ==
[~2017-08-22] VITALS: Ht 167.6 cm; Wt 90.7 kg
[~2017-08-22 15:24] MED LIST changes: +Motrin,Rufen800 MG PO
[2017-08-22] MEDS ORDERED: ZOFRAN4 MG PO (15:45)
[2017-08-22] MEDS ORDERED: 'PARAFON FORTE500 M1 PO (15:45)
[2017-08-22] MEDS ORDERED: NAPROSYN500 MG PO (15:45)
[2017-08-22] MEDS ORDERED: AUGMENTIN 500500 M1 PO (15:45)
== END 2017-08-22 16:47 | disposition home or self-care (01) ==
LOC: ED 15:24
DX: S13.9XXA Sprain of joints and ligaments of unspecified parts of neck, initial encounter (principal); S00.90XA Unspecified superficial injury of unspecified part of head, initial encounter; J45.909 Unspecified asthma, uncomplicated; E11.9 Type 2 diabetes mellitus without complications; F17.200 Nicotine dependence, unspecified, uncomplicated; Z79.899 Other long term (current) drug therapy; Y04.0XXA Assault by unarmed brawl or fight, initial encounter; Y93.89 Activity, other specified; Y92.89 Other specified places as the place of occurrence of the external cause; Y99.8 Other external cause status

== ENCOUNTER 2017-09-14 05:44 | Emergency (ER) | payer OTHER ==
[~2017-09-14] VITALS: Ht 162.5 cm; Wt 90.7 kg
[~2017-09-14 05:44] MED LIST changes: +'PARAFON FORTE500 M1 PO; +AUGMENTIN 500500 M1 PO; +NAPROSYN500 MG PO
== END 2017-09-14 08:31 | disposition home or self-care (01) ==
LOC: ED 05:44
DX: T16.1XXA Foreign body in right ear, initial encounter (principal); E11.9 Type 2 diabetes mellitus without complications; J45.909 Unspecified asthma, uncomplicated; F17.200 Nicotine dependence, unspecified, uncomplicated; Z79.899 Other long term (current) drug therapy; X58.XXXA Exposure to other specified factors, initial encounter; Y93.89 Activity, other specified; Y92.89 Other specified places as the place of occurrence of the external cause; Y99.8 Other external cause status

== ENCOUNTER 2017-11-22 10:26 | Emergency (ER) | payer OTHER ==
[~2017-11-22] VITALS: Ht 162.5 cm; Wt 90.7 kg
[2017-11-22] MEDS ORDERED: CYCLOBENZAPRINE10 MG PO (11:31)
[2017-11-22] MEDS ORDERED: NAPROSYN500 MG PO (11:31)
[2017-11-22] MEDS ORDERED: MEDROL DOSEPAK4 MG PO (11:31)
[2017-11-22] MEDS ORDERED: AMOXICILLIN500 M2 PO (11:31)
[2017-11-22] MEDS ORDERED: ROBITUSSIN DM 105 ML PO (11:31)
== END 2017-11-22 11:32 | disposition home or self-care (01) ==
LOC: ED 10:26
DX: S16.1XXA Strain of muscle, fascia and tendon at neck level, initial encounter (principal); J20.9 Acute bronchitis, unspecified; F17.200 Nicotine dependence, unspecified, uncomplicated; Z32.02 Encounter for pregnancy test, result negative; X58.XXXA Exposure to other specified factors, initial encounter; Y93.89 Activity, other specified; Y92.89 Other specified places as the place of occurrence of the external cause; Y99.8 Other external cause status

== ENCOUNTER 2017-11-30 16:51 | Emergency (ER) | payer OTHER ==
[~2017-11-30] VITALS: Wt 90.7 kg
[2017-11-30] MEDS ORDERED: Carafate1 GM PO (17:52)
== END 2017-11-30 18:15 | disposition home or self-care (01) ==
LOC: ED 16:51
DX: K29.70 Gastritis, unspecified, without bleeding (principal); F17.200 Nicotine dependence, unspecified, uncomplicated; E11.65 Type 2 diabetes mellitus with hyperglycemia; E66.9 Obesity, unspecified; J45.909 Unspecified asthma, uncomplicated; Z79.899 Other long term (current) drug therapy; Z98.890 Other specified postprocedural states

== ENCOUNTER → 2017-12-16 | Outpatient (CLI) | payer OTHER ==
[~2017-12-16] MED LIST changes: +Carafate1 GM PO
== END | disposition home or self-care (01) ==
LOC: RESCLI 03:54
DX: Z01.818 Encounter for other preprocedural examination (principal); K21.9 Gastro-esophageal reflux disease without esophagitis; F32.9 Major depressive disorder, single episode, unspecified; F41.1 Generalized anxiety disorder; E66.9 Obesity, unspecified; F17.210 Nicotine dependence, cigarettes, uncomplicated; Z71.6 Tobacco abuse counseling

== ENCOUNTER 2018-02-06 19:57 | Emergency (ER) | payer OTHER ==
[~2018-02-06] VITALS: Ht 162.5 cm; Wt 90.7 kg
[2018-02-06] MEDS ORDERED: BIRTH CONTROL (20:06)
[2018-02-06] MEDS ORDERED: FLAGYL500 MG PO (20:06)
[2018-02-06] MEDS ORDERED: MEDROL DOSEPAK4 MG PO (21:59)
== END 2018-02-06 22:01 | disposition home or self-care (01) ==
LOC: ED 19:57
DX: S46.912A Strain of unspecified muscle, fascia and tendon at shoulder and upper arm level, left arm, initial encounter (principal); M25.552 Pain in left hip; R73.03 Prediabetes; F17.200 Nicotine dependence, unspecified, uncomplicated; W22.8XXA Striking against or struck by other objects, initial encounter; Y93.89 Activity, other specified; Y92.099 Unspecified place in other non-institutional residence as the place of occurrence of the external cause; Y99.8 Other external cause status

== ENCOUNTER → 2018-09-02 | Outpatient (CLI) | payer OTHER ==
[~2018-09-02] MED LIST changes: +BIRTH CONTROL; +FLAGYL500 MG PO; +ZITHROMAX250 MG PO
== END | disposition home or self-care (01) ==
LOC: RESCLI 12:43
DX: J45.909 Unspecified asthma, uncomplicated (principal); R00.0 Tachycardia, unspecified; R03.0 Elevated blood-pressure reading, without diagnosis of hypertension; J32.9 Chronic sinusitis, unspecified; J02.9 Acute pharyngitis, unspecified; F17.200 Nicotine dependence, unspecified, uncomplicated; K21.9 Gastro-esophageal reflux disease without esophagitis; Z71.6 Tobacco abuse counseling; Z79.899 Other long term (current) drug therapy; Z88.8 Allergy status to other drugs, medicaments and biological substances

== ENCOUNTER 2018-09-11 08:56 | Emergency (ER) | payer OTHER ==
[~2018-09-11] VITALS: Ht 162.5 cm; Wt 95.3 kg
[~2018-09-11 08:56] MED LIST changes: -ZITHROMAX250 MG PO
[2018-09-11 09:25] LABS: BILIRUBIN NEGATIVE (NEGATIVE); BLOOD TRACE-LYSED (NEGATIVE); CLARITY CLEAR (CLEAR); COLOR YELLOW (YELLOW); GLUCOSE NEGATIVE (NEGATIVE); KETONE NEGATIVE (NEGATIVE); LEUKO ESTERASE NEGATIVE (NEGATIVE); NITRITE NEGATIVE (NEGATIVE); SPECIFIC GRAVITY 1.025 (1.005-1.030); UROBILINOGEN 0.2 E.U./dl (0.2-1.0)
[2018-09-11 09:39] LABS: BACTERIA 1+; MUCOUS 1+; WBC 0-2 wbc/hpf (0-5)
[2018-09-11] MEDS ORDERED: ZITHROMAX250 MG PO (11:23)
== END 2018-09-11 11:34 | disposition home or self-care (01) ==
LOC: ED 08:56
PROVIDERS: Emergency Medicine
DX: M54.9 Dorsalgia, unspecified (principal); R10.9 Unspecified abdominal pain; R11.10 Vomiting, unspecified; J45.909 Unspecified asthma, uncomplicated; E66.9 Obesity, unspecified; F17.200 Nicotine dependence, unspecified, uncomplicated; Z79.899 Other long term (current) drug therapy

== ENCOUNTER → 2018-09-15 | Outpatient (CLI) | payer OTHER ==
[~2018-09-15] MED LIST changes: +ANTIBIOTIC28.4 GM T; +AUGMENTIN 875-875 MG PO; +Tobrex Ophth S2.5 ML OPH; +ZITHROMAX250 MG PO
[2018-09-15 13:38] LABS: BILIRUBIN NEGATIVE (NEGATIVE); BLOOD TRACE-INTACT (NEGATIVE); CLARITY CLEAR (CLEAR); COLOR YELLOW (YELLOW); GLUCOSE NEGATIVE (NEGATIVE); KETONE NEGATIVE (NEGATIVE); LEUKO ESTERASE NEGATIVE (NEGATIVE); NITRITE NEGATIVE (NEGATIVE); SPECIFIC GRAVITY >= 1.030 (1.005-1.030); UROBILINOGEN 0.2 E.U./dl (0.2-1.0)
[2018-09-15 13:49] LABS: MUCOUS 1+
== END | disposition home or self-care (01) ==
LOC: RESCLI 12:42
PROVIDERS: Student in an Organized Health Care Education/Training Program
DX: E66.9 Obesity, unspecified (principal); R31.9 Hematuria, unspecified; F17.210 Nicotine dependence, cigarettes, uncomplicated; K21.9 Gastro-esophageal reflux disease without esophagitis; F41.1 Generalized anxiety disorder; J45.909 Unspecified asthma, uncomplicated; Z79.899 Other long term (current) drug therapy; Z71.6 Tobacco abuse counseling; Z88.8 Allergy status to other drugs, medicaments and biological substances

== ENCOUNTER → 2018-09-20 | Outpatient (CLI) | payer OTHER ==
[~2018-09-20] MED LIST changes: -ANTIBIOTIC28.4 GM T; -AUGMENTIN 875-875 MG PO; -Tobrex Ophth S2.5 ML OPH
[2018-09-20 10:04] LABS: BILIRUBIN NEGATIVE (NEGATIVE); BLOOD TRACE-LYSED (NEGATIVE); CLARITY SL CLOUDY (CLEAR); COLOR YELLOW (YELLOW); GLUCOSE NEGATIVE (NEGATIVE); KETONE NEGATIVE (NEGATIVE); LEUKO ESTERASE NEGATIVE (NEGATIVE); NITRITE NEGATIVE (NEGATIVE); SPECIFIC GRAVITY >= 1.030 (1.005-1.030); UROBILINOGEN 0.2 E.U./dl (0.2-1.0)
[2018-09-20 10:14] LABS: BASO # 0.1 10*3/uL (0.0-0.1); BASO % 0.5 % (0.0-1.0); EOS # 0.5 10*3/uL (0.0-0.4); EOS % 3.9 % (1.0-4.0); HEMATOCRIT 43.8 % (37.0-47.0); HEMOGLOBIN 14.3 g/dl (12.0-16.0); LYMPH % 24.6 % (27.0-41.0); MEAN CELL VOLUME 88.7 fl (81.0-99.0); MEAN CORPUSCULAR HGB 28.9 pg (27.0-31.0); MEAN CORPUSCULAR HGB CONC 32.6 g/dl (33.0-37.0); MEAN PLATELET VOLUME 8.7 fl (9.6-12.3); MONO % 7.9 % (3.0-9.0); NEUT # 7.6 10*3/uL (2.3-7.9); NEUT % 62.8 % (47.0-73.0); PLATELET COUNT AUTOMATED 358 10*3/uL (130-400); RED BLOOD COUNT 4.94 10*6/uL (4.10-5.10); RED CELL DISTRI WIDTH 13.6 % (0-14.5)
[2018-09-20 10:16] LABS: BACTERIA TRACE; MUCOUS TRACE
[2018-09-20 10:32] LABS: ALBUMIN 3.6 gm/dl (3.1-4.5); ALKALINE PHOSPHATASE 91 U/L (45-117); BUN 10 mg/dl (7-24); CHLORIDE 102 mmol/L (98-107); CHOLESTEROL 174 mg/dL (<200); CREATININE 0.66 mg/dL (0.55-1.02); HDL CHOLESTEROL 34 mg/dl (40-60); LDL CHOLESTEROL 123 mg/dL (9-159); POTASSIUM 3.9 mmol/L (3.5-5.1); SGOT/AST 12 IU/L (3-35); SGPT/ALT 28 U/L (12-78); SODIUM 138 mmol/L (136-145); TOTAL PROTEIN 7.8 gm/dL (6.4-8.2); TRIGLYCERIDES 86 mg/dl (<150); VLDL CHOLESTEROL 17 mg/dL (6-40)
== END | disposition home or self-care (01) ==
LOC: LAB 09:25
PROVIDERS: Student in an Organized Health Care Education/Training Program
DX: K21.9 Gastro-esophageal reflux disease without esophagitis (principal); E66.9 Obesity, unspecified; R31.9 Hematuria, unspecified; Z72.0 Tobacco use

== ENCOUNTER → 2018-10-21 | Outpatient (CLI) | payer OTHER ==
[~2018-10-21] MED LIST changes: +ANTIBIOTIC28.4 GM T; +AUGMENTIN 875-875 MG PO; +Tobrex Ophth S2.5 ML OPH
== END | disposition home or self-care (01) ==
LOC: RESCLI 04:45
DX: E66.9 Obesity, unspecified (principal); R31.9 Hematuria, unspecified; K21.9 Gastro-esophageal reflux disease without esophagitis; F17.210 Nicotine dependence, cigarettes, uncomplicated; F41.1 Generalized anxiety disorder; R53.82 Chronic fatigue, unspecified; J45.909 Unspecified asthma, uncomplicated; Z88.8 Allergy status to other drugs, medicaments and biological substances; Z79.899 Other long term (current) drug therapy

== ENCOUNTER → 2019-02-08 | Outpatient (CLI) | payer OTHER | END | disposition home or self-care (01) | LOC: LAB 16:32 | PROVIDERS: Urology | DX: R31.9 Hematuria, unspecified (principal) ==

== ENCOUNTER → 2019-04-19 | Outpatient (CLI) | payer OTHER ==
[2019-04-19 15:33] LABS: BILIRUBIN NEGATIVE (NEGATIVE); BLOOD 2+ (NEGATIVE); CLARITY SL CLOUDY (CLEAR); COLOR YELLOW (YELLOW); GLUCOSE NEGATIVE (NEGATIVE); KETONE NEGATIVE (NEGATIVE); LEUKO ESTERASE NEGATIVE (NEGATIVE); NITRITE NEGATIVE (NEGATIVE); SPECIFIC GRAVITY >= 1.030 (1.005-1.030); UROBILINOGEN 0.2 E.U./dl (0.2-1.0)
[2019-04-19 15:42] LABS: BACTERIA TRACE; CALCIUM OXALATE CRYSTALS 1+; MUCOUS 2+; WBC 0-2 wbc/hpf (0-5)
== END | disposition home or self-care (01) ==
LOC: LAB 14:53
PROVIDERS: Nurse Practitioner Family
DX: R31.9 Hematuria, unspecified (principal)

== ENCOUNTER 2019-04-26 10:24 | Emergency (ER) | payer OTHER ==
[~2019-04-26] VITALS: Ht 162.5 cm; Wt 90.7 kg
[~2019-04-26 10:24] MED LIST changes: -ANTIBIOTIC28.4 GM T
[2019-04-26] MEDS ORDERED: ANTIBIOTIC28.4 GM T (11:06)
[2019-04-26] MEDS ORDERED: CEPHALEXIN500 M1 PO (11:06)
== END 2019-04-26 11:16 | disposition home or self-care (01) ==
LOC: ED 10:24
DX: S61.212A Laceration without foreign body of right middle finger without damage to nail, initial encounter (principal); F17.200 Nicotine dependence, unspecified, uncomplicated; Z79.899 Other long term (current) drug therapy; Z79.2 Long term (current) use of antibiotics; W26.8XXA Contact with other sharp object(s), not elsewhere classified, initial encounter; Y93.G1 Activity, food preparation and clean up; Y92.89 Other specified places as the place of occurrence of the external cause; Y99.8 Other external cause status

== ENCOUNTER 2019-05-21 21:14 | Emergency (ER) | payer OTHER ==
[~2019-05-21] VITALS: Ht 162.5 cm; Wt 90.7 kg
[~2019-05-21 21:14] MED LIST changes: +ANTIBIOTIC28.4 GM T
[2019-05-21] MEDS ORDERED: AMOXICILLIN500 M2 PO (21:52)
== END 2019-05-21 22:15 | disposition home or self-care (01) ==
LOC: ED 21:14
DX: H66.91 Otitis media, unspecified, right ear (principal); R51 Headache; F17.200 Nicotine dependence, unspecified, uncomplicated; Z96.22 Myringotomy tube(s) status

== ENCOUNTER 2019-09-03 20:28 | Emergency (ER) | payer OTHER ==
[~2019-09-03] VITALS: Ht 152.4 cm; Wt 90.7 kg
== END 2019-09-03 23:29 | disposition home or self-care (01) ==
LOC: ED 20:28
DX: R59.0 Localized enlarged lymph nodes (principal); I10 Essential (primary) hypertension; J45.909 Unspecified asthma, uncomplicated; F17.200 Nicotine dependence, unspecified, uncomplicated; Z79.2 Long term (current) use of antibiotics; Z79.899 Other long term (current) drug therapy

== ENCOUNTER 2019-10-21 20:40 | Emergency (ER) | payer OTHER ==
[~2019-10-21] VITALS: Wt 90.7 kg
[2019-10-21] MEDS ORDERED: MEDROL DOSEPAK4 MG PO (22:22)
[2019-10-21] MEDS ORDERED: PROAIR HFA8.5 GM INH (22:22)
== END 2019-10-21 22:32 | disposition home or self-care (01) ==
LOC: ED 20:40
DX: J45.909 Unspecified asthma, uncomplicated (principal); I10 Essential (primary) hypertension; F41.9 Anxiety disorder, unspecified; F32.9 Major depressive disorder, single episode, unspecified; F17.200 Nicotine dependence, unspecified, uncomplicated

== ENCOUNTER → 2020-04-05 | Outpatient (CLI) | payer OTHER ==
[~2020-04-05] MED LIST changes: +PROAIR HFA8.5 GM INH
== END | disposition home or self-care (01) ==
LOC: LAB 07:49
DX: O40.2XX0 Polyhydramnios, second trimester, not applicable or unspecified (principal); Z3A.25 25 weeks gestation of pregnancy

== ENCOUNTER → 2020-04-18 | Outpatient (CLI) | payer OTHER ==
[2020-04-18 16:03] LABS: BASO % 0.2 % (0.0-1.0); EOS # 0.3 10*3/uL (0.0-0.4); EOS % 2.2 % (1.0-4.0); HEMATOCRIT 31.8 % (37.0-47.0); LYMPH # 2.7 10*3/uL (1.3-4.4); LYMPH % 18.7 % (27.0-41.0); MEAN CELL VOLUME 89.3 fl (81.0-99.0); MEAN CORPUSCULAR HGB 29.2 pg (27.0-31.0); MEAN CORPUSCULAR HGB CONC 32.7 g/dl (33.0-37.0); MEAN PLATELET VOLUME 8.5 fl (9.6-12.3); MONO # 0.8 10*3/uL (0.1-1.0); MONO % 5.3 % (3.0-9.0); NEUT # 10.7 10*3/uL (2.3-7.9); PLATELET COUNT AUTOMATED 374 10*3/uL (130-400); RED BLOOD COUNT 3.56 10*6/uL (4.10-5.10); RED CELL DISTRI WIDTH 13.7 % (0-14.5); WHITE BLOOD COUNT 14.7 10*3/uL (4.8-10.8)
[2020-04-18 16:34] LABS: ALBUMIN 2.8 gm/dl (3.1-4.5); ALKALINE PHOSPHATASE 109 U/L (45-117); BUN 4 mg/dl (7-24); CHLORIDE 104 mmol/L (98-107); CREATININE 0.61 mg/dL (0.55-1.02); FREE T4 0.83 ng/dl (0.76-1.46); POTASSIUM 3.2 mmol/L (3.5-5.1); SGOT/AST 8 IU/L (3-35); SGPT/ALT 15 U/L (12-78); SODIUM 135 mmol/L (136-145); TOTAL PROTEIN 7.1 gm/dL (6.4-8.2)
== END | disposition home or self-care (01) ==
LOC: LAB 15:47
PROVIDERS: Internal Medicine
DX: O40.9XX0 Polyhydramnios, unspecified trimester, not applicable or unspecified (principal); Z3A.00 Weeks of gestation of pregnancy not specified

== ENCOUNTER → 2020-04-20 | Outpatient (CLI) | payer OTHER | END | disposition home or self-care (01) | LOC: LAB 08:26 | DX: O40.3XX2 Polyhydramnios, third trimester, fetus 2 (principal); Z3A.27 27 weeks gestation of pregnancy ==

== ENCOUNTER 2020-06-16 14:26 | Emergency (ER) | payer OTHER ==
[~2020-06-16] VITALS: Ht 162.5 cm; Wt 90.7 kg
[2020-06-16 14:59] LABS: BILIRUBIN Negative (Negative); BLOOD Negative (Negative); CLARITY Clear (Clear); COLOR Dark Yellow (Yellow); GLUCOSE Negative (Negative); KETONE Trace (Negative); LEUKO ESTERASE Trace (Negative); NITRITE Negative (Negative); PH 6.5 (4.5-8.0); SPECIFIC GRAVITY 1.025 (1.001-1.030)
[2020-06-16 15:14] LABS: BACTERIA 2+; MUCOUS 1+
[2020-06-16] MEDS ORDERED: CEPHALEXIN500 M1 PO (15:47)
== END 2020-06-16 15:50 | disposition home or self-care (01) ==
LOC: ED 14:26
PROVIDERS: Emergency Medicine
DX: O23.43 Unspecified infection of urinary tract in pregnancy, third trimester (principal); Z79.899 Other long term (current) drug therapy; Z3A.37 37 weeks gestation of pregnancy

== ENCOUNTER 2020-07-21 16:08 | Emergency (ER) | payer OTHER ==
[~2020-07-21] VITALS: Ht 162.5 cm; Wt 77.1 kg
[2020-07-21] MEDS ORDERED: CEFADROXIL500 M1 PO (17:15)
== END 2020-07-21 17:28 | disposition home or self-care (01) ==
LOC: ED 16:08
DX: L03.011 Cellulitis of right finger (principal)

== ENCOUNTER 2021-01-21 10:34 | Emergency (ER) | payer OTHER ==
[~2021-01-21] VITALS: Ht 162.5 cm; Wt 93.0 kg
[~2021-01-21 10:34] MED LIST changes: +CEFADROXIL500 M1 PO
== END 2021-01-21 15:41 | disposition left against medical advice (07) ==
LOC: ED 10:34
DX: K04.7 Periapical abscess without sinus (principal); Z53.21 Procedure and treatment not carried out due to patient leaving prior to being seen by health care provider

== ENCOUNTER 2021-12-26 14:41 | Emergency (ER) | payer OTHER ==
[~2021-12-26] VITALS: Wt 98.9 kg
[2021-12-26] MEDS ORDERED: CYCLOBENZAPRINE10 MG PO (16:14)
[2021-12-26] MEDS ORDERED: IBU800 M2 PO (16:14)
== END 2021-12-26 17:54 | disposition home or self-care (01) ==
LOC: ED 14:41
DX: S86.912A Strain of unspecified muscle(s) and tendon(s) at lower leg level, left leg, initial encounter (principal); F17.200 Nicotine dependence, unspecified, uncomplicated; Z98.890 Other specified postprocedural states; V49.88XA Car occupant (driver) (passenger) injured in other specified transport accidents, initial encounter; Y93.89 Activity, other specified; Y92.413 State road as the place of occurrence of the external cause; Y99.9 Unspecified external cause status

== ENCOUNTER 2023-04-24 15:17 | Emergency (ER) | payer OTHER ==
[~2023-04-24] VITALS: Ht 162.5 cm; Wt 95.7 kg
[~2023-04-24 15:17] MED LIST changes: +IBU800 M2 PO
== END 2023-04-24 16:30 | disposition left against medical advice (07) ==
LOC: ED 15:17
DX: M79.674 Pain in right toe(s) (principal); Z53.21 Procedure and treatment not carried out due to patient leaving prior to being seen by health care provider

== ENCOUNTER 2024-06-28 11:00 | Emergency (ER) | payer OTHER ==
[~2024-06-28] VITALS: Ht 162.5 cm; Wt 96.7 kg
[2024-06-28 11:35] LABS: BASO # 0.1 10*3/uL (0.0-0.1); BASO % 0.5 % (0.0-1.0); EOS # 0.4 10*3/uL (0.0-0.4); EOS % 4.3 % (1.0-4.0); HEMATOCRIT 40.3 % (37.0-47.0); LYMPH # 3.6 10*3/uL (1.3-4.4); LYMPH % 35.9 % (27.0-41.0); MEAN CELL VOLUME 86.5 fl (81.0-99.0); MEAN CORPUSCULAR HGB 27.5 pg (27.0-31.0); MEAN CORPUSCULAR HGB CONC 31.8 g/dl (33.0-37.0); MEAN PLATELET VOLUME 8.2 fl (9.6-12.3); MONO # 0.6 10*3/uL (0.1-1.0); MONO % 6.1 % (3.0-9.0); NEUT # 5.3 10*3/uL (2.3-7.9); NEUT % 52.9 % (47.0-73.0); PLATELET COUNT AUTOMATED 325 10*3/uL (130-400); RED BLOOD COUNT 4.66 10*6/uL (4.10-5.10); RED CELL DISTRI WIDTH 14.1 % (0-14.5)
[2024-06-28 12:03] LABS: BUN 11 mg/dl (9-23); CHLORIDE 104 mmol/L (98-107); POTASSIUM 3.8 mmol/L (3.4-5.1)
[2024-06-28] MEDS ORDERED: PREDNISONE20 M1 PO (12:16)
[2024-06-28] MEDS ORDERED: AVPAK AZITHROM250 M1 PO (12:16)
[2024-06-28] MEDS ORDERED: AZITHROMYCIN 250 MG TAB PO ONE (12:20)
[2024-06-28] MEDS ORDERED: predniSONE 20 MG TAB PO ONE (12:20)
== END 2024-06-28 12:43 | disposition home or self-care (01) ==
LOC: ED 11:00
PROVIDERS: Nurse Practitioner Family
DX: J45.909 Unspecified asthma, uncomplicated (principal); R07.1 Chest pain on breathing; R05.9 Cough, unspecified; F41.9 Anxiety disorder, unspecified; E83.41 Hypermagnesemia; I10 Essential (primary) hypertension; D64.9 Anemia, unspecified; F31.9 Bipolar disorder, unspecified; F90.9 Attention-deficit hyperactivity disorder, unspecified type; Z72.0 Tobacco use; Z98.890 Other specified postprocedural states

== ENCOUNTER 2025-05-14 21:41 | Emergency (ER) | payer OTHER ==
[~2025-05-14] VITALS: Ht 167.6 cm; Wt 99.8 kg
[~2025-05-14 21:41] MED LIST changes: +AVPAK AZITHROM250 M1 PO
[2025-05-14] MEDS ORDERED: Albuterol Sulf/Ipratropium 3 ML VIAL NEB ONE (22:05)
[2025-05-14] MEDS ORDERED: predniSONE 20 MG TAB PO ONE (23:35)
[2025-05-14] MEDS ORDERED: Amoxicillin/Clavulanate Pota 875 MG TAB PO ONE (23:35)
[2025-05-14] MEDS ORDERED: AMOX-CLAV 875-1 EACH PO (23:39)
[2025-05-14] MEDS ORDERED: PREDNISONE20 M1 PO (23:39)
[2025-05-14] MEDS ORDERED: ALBUTEROL 8 GM INHALER INH PRN (23:40)
== END 2025-05-14 23:42 | disposition home or self-care (01) ==
LOC: ED 21:41
DX: J06.9 Acute upper respiratory infection, unspecified (principal); F17.200 Nicotine dependence, unspecified, uncomplicated; Z79.899 Other long term (current) drug therapy; Z98.890 Other specified postprocedural states; Z96.22 Myringotomy tube(s) status